=== PATIENT | male | born 1990 | race Caucasian/White ===

== ENCOUNTER 2021-07-25 21:39 | Emergency (ER) | payer SELFPAY ==
[2021-07-25] MEDS ORDERED: Ketorolac Tromethamine 30 MG/ML VIAL ONE (22:30)
[2021-07-25] MEDS ORDERED: cefTRIAXone\\ROCEPHIN 500 MG VIAL ONE (22:57)
[2021-07-25] MEDS ORDERED: Lidocaine 1% (PF) 30 ML VIAL ONE (22:58)
== END 2021-07-25 23:14 | disposition home or self-care (01) ==
LOC: CSHERS 21:39
DX: N45.3 Epididymo-orchitis (principal); F17.210 Nicotine dependence, cigarettes, uncomplicated
CPT/HCPCS: 76870; 93976; 96372; J0696; J1885; J2001